=== PATIENT | female | born 1995 | race African-American/Black ===

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

== ENCOUNTER 2017-08-01 19:38 | Emergency (ER) | payer SELFPAY ==
[2017-08-01 19:51] LABS: URINE HCG POC HCG POSITIVE (Negative)
[2017-08-01 20:19] LABS: BILIRUBIN,URINE NEGATIVE (NEG); CLARITY,URINE CLEAR; GLUCOSE,URINE NEGATIVE (NEG); NITRITE,URINE NEGATIVE (NEG); PH,URINE 5.5; PROTEIN,URINE 30 mg/dL (NEG-TRACE); UROBILINOGEN,URINE 0.2 mg/dL (0.2 mg/dL)
[2017-08-01 20:31] LABS: COLOR,URINE DK YELLOW
[2017-08-01 20:33] LABS: BACTERIA,URINE MANY /HPF (0-FEW); SQUAMOUS EPITHELIAL CELL,UR MANY /LPF; WBC,URINE OCC /HPF (0-4)
[2017-08-01 21:16] LABS: ADD MAN DIFF? NO
[2017-08-01 21:18] LABS: BASO # 0.1 x10^3/uL (0.0-0.2); BASO % 1 % (0-3); EOS % 0 % (0-3); LYMPH # 2.9 x10^3/uL (1.0-4.8); LYMPH % 26 % (24-48); MEAN CORPUSCULAR HEMOGLOBIN 32 pg (25-35); MEAN CORPUSCULAR HGB CONC 34 g/dL (31-37); MEAN CORPUSCULAR VOLUME 93 fL (79-100); MONO # 0.9 x10^3/uL (0.0-1.1); MONO % 8 % (0-9); NEUT # 7.4 x10^3uL (1.8-7.7); NEUT % 65 % (31-73); PLATELET COUNT 224 x10^3/uL (140-400); RED CELL DISTRIBUTION WIDTH 13.3 % (11.5-14.5); WHITE BLOOD COUNT 11.3 x10^3/uL (4.0-11.0)
[2017-08-03 14:17] LABS: CHLAMYDIA PROBE Negative (Negative); GC PROBE Negative (Negative)
== END 2017-08-01 22:26 | disposition home or self-care (01) ==
LOC: ER 19:38
DX: Z33.1 Pregnant state, incidental (principal)
CPT/HCPCS: 36415; 76801; 76817; 81001; 81025; 84702; 85025; 86901; 87086; 87491; 87591; 99285-25; Q0111

== ENCOUNTER 2018-01-15 18:27 | Emergency (ER) | payer OTHER ==
[~2018-01-15] VITALS: Ht 152.4 cm; Wt 81.6 kg
[~2018-01-15 18:27] MED LIST changes: +METR500T PO
[2018-01-15 19:16] VITALS: BP 134/61
[2018-01-15 19:37] LABS: BILIRUBIN,URINE NEGATIVE (NEG); CLARITY,URINE CLEAR; COLOR,URINE YELLOW; NITRITE,URINE NEGATIVE (NEG); PH,URINE 5.5; PROTEIN,URINE NEGATIVE (NEG-TRACE); UROBILINOGEN,URINE 0.2 mg/dL (0.2 mg/dL)
--- NOTE | 2018-01-15 19:50 | PHYS DOC ---
Past Medical History Past Medical History: No Pertinent History Past Surgical History: No Surgical History Alcohol Use: None Drug Use: None Adult General Chief Complaint Chief Complaint: VAGINAL PROBLEM HPI HPI Patient is a 22 year old female with no significant medical history who presents today complaining of vaginal discharge for 3 days. Patient believes she has bacterial vaginosis. Denies any concerns for STDs. Denies any chance she is . Denies any abdominal pain. Denies any nausea vomiting. Review of Systems Review of Systems Constitutional: Denies fever or chills [] Eyes: Denies change in visual acuity, redness, or eye pain [] HENT: Denies nasal congestion or sore throat [] Respiratory: Denies cough or shortness of breath [] Cardiovascular: No additional information not addressed in HPI [] GI: Denies abdominal pain, nausea, vomiting, bloody stools or diarrhea [] : Reports vaginal discharge. Denies dysuria or hematuria [] Musculoskeletal: Denies back pain or joint pain [] Integument: Denies rash or skin lesions [] Neurologic: Denies headache, focal weakness or sensory changes [] All other systems were reviewed and found to be within normal limits, except as documented in this note. Allergies Allergies Allergies Coded Allergies Type Severity Reaction Last Updated Verified No Known Drug Allergies 04/13/16 No Physical Exam Physical Exam Constitutional: Well developed, well nourished, no acute distress, non-toxic appearance. [] HENT: Normocephalic, atraumatic, bilateral external ears normal, oropharynx moist, no oral exudates, nose normal. [] Eyes: PERRLA, EOMI, conjunctiva normal, no discharge. [] Neck: Normal range of motion, no tenderness, supple, no stridor. [] Cardiovascular:Heart rate regular rhythm, no murmur [] Lungs & Thorax: Bilateral breath sounds clear to auscultation [] Abdomen: Bowel sounds normal, soft, no tenderness, no masses, no pulsatile masses. [] Pelvic exam External pelvic appears normal, cervix is closed, no CMT, no adnexal tenderness , small amount of white discharge in the vaginal vault. Skin: Warm, dry, no erythema, no rash. [] Back: No tenderness, no CVA tenderness. [] Extremities: No tenderness, no cyanosis, no clubbing, ROM intact, no edema. [] Neurologic: Alert and oriented X 3, normal motor function, normal sensory function, no focal deficits noted. [] Psychologic: Affect normal, judgement normal, mood normal. [] Current Patient Data Vital Signs Vital Signs Date Time Temp Pulse Resp B/P (MAP) Pulse Ox O2 Delivery O2 Flow Rate FiO2 01/15/18 19:16 98.8 98 18 134/61 (85) 99 Room Air 98.8 Lab Values Laboratory Tests Test 01/15/18 19:22 01/15/18 19:28 Urine Collection Type Unknown Urine Color Yellow Urine Clarity Clear Urine pH 5.5 Urine Specific [place] >=1.030 Urine Protein Negative mg/dL (NEG-TRACE) Urine Glucose (UA) Negative mg/dL (NEG) Urine Ketones (Stick) Negative mg/dL (NEG) Urine Blood Negative (NEG) Urine Nitrite Negative (NEG) Urine Bilirubin Negative (NEG) Urine Urobilinogen Dipstick 0.2 mg/dL (0.2 mg/dL) Urine Leukocyte Esterase Negative (NEG) Urine RBC 0 /HPF (0-2) Urine WBC Occ /HPF (0-4) Urine Squamous Epithelial Cells Mod /LPF Urine Bacteria Few /HPF (0-FEW) Urine Mucus Mod /LPF POC Urine HCG, Qualitative Hcg negative (Negative) Microbiology 01/15/18 Wet Prep - Final, Complete EKG EKG [] Radiology/Procedures Radiology/Procedures [] Course & Med Decision Making Course & Med Decision Making Pertinent Labs and Imaging studies reviewed. (See chart for details) This is a 22-year-old female patient presented to the ED today with vaginal discharge for 3 days. Negative urine hCG, wet prep noted for BV. Patient will be discharged and Flagyl. Follow-up with PCP as needed. UA is negative for infection. Dragon Disclaimer Dragon Disclaimer This electronic medical record was generated, in whole or in part, using a voice recognition dictation system. Departure Departure Impression: Primary Impression: BV (bacterial vaginosis) Disposition: 01 HOME, SELF-CARE Condition: STABLE Referrals: NO PCP (PCP) KARIS SNOW MD Follow-up in 1-2 weeks as needed Patient Instructions: Bacterial Vaginosis, [id number] Additional Instructions: You have bacterial vaginosis, ensure you complete your antibiotics. Follow-up with your own SLABBER or primary care doctor in 1-2 weeks as needed. Come back to the emergency room at any point symptoms worsen. Scripts Metronidazole (FLAGYL) 500 Mg Tablet 1 TAB PO BID, #14 TAB Prov: MACHO PEREYRA APRN 01/15/18 MACHO PEREYRA APRN Jan 15, 2018 19:50
[2018-01-15 20:00] LABS: BACTERIA,URINE FEW /HPF (0-FEW); RBC,URINE 0 /HPF (0-2); SQUAMOUS EPITHELIAL CELL,UR MOD /LPF; WBC,URINE OCC /HPF (0-4)
[2018-01-15] MEDS ORDERED: METR500T PO (20:16)
[2018-01-18 15:26] LABS: GC PROBE Negative (Negative)
== END 2018-01-15 20:20 | disposition home or self-care (01) ==
LOC: ER 18:27
DX: N76.0 Acute vaginitis (principal); B96.89 Other specified bacterial agents as the cause of diseases classified elsewhere
CPT/HCPCS: 81001; 81025; 87491; 87591; 99284; Q0111

== ENCOUNTER 2018-02-16 15:24 | Emergency (ER) | payer SELFPAY ==
[~2018-02-16] VITALS: Ht 154.9 cm; Wt 83.3 kg
--- NOTE | 2018-02-16 15:53 | PHYS DOC ---
Past Medical History Past Medical History: No Pertinent History Past Surgical History: No Surgical History Alcohol Use: None Drug Use: None Adult General Chief Complaint Chief Complaint: FINGER INJURY HPI HPI 22-year-old female presents to ER for complaints of left middle finger pain and swelling at the side and base of her nail bed. Patient reports she was seen by her doctor yesterday and was instructed to soak finger in peroxide multiple times daily. Patient reports pain and pressure in the end of her left middle finger has increased denying any fever/chills or red streaking on finger. She denies injury to lt middle finger- reporting she picks her nails/skin surrounding nailbed and has had similar episodes. Pt was started on Keflex yesterday for sore throat. Review of Systems Review of Systems Constitutional: Denies fever or chills [] Eyes: Denies change in visual acuity, redness, or eye pain [] HENT: Denies nasal congestion or sore throat [] Respiratory: Denies cough or shortness of breath [] Cardiovascular: No additional information not addressed in HPI [] GI: Denies abdominal pain, nausea, vomiting, bloody stools or diarrhea [] : Denies dysuria or hematuria [] Musculoskeletal: Denies back pain or joint pain [] Integument: Denies rash or skin lesions [] Neurologic: Denies headache, focal weakness or sensory changes [] Endocrine: Denies polyuria or polydipsia [] All other systems were reviewed and found to be within normal limits, except as documented in this note. Allergies Allergies Allergies Coded Allergies Type Severity Reaction Last Updated Verified No Known Drug Allergies 04/13/16 No Physical Exam Physical Exam Constitutional: Well developed, well nourished, no acute distress, non-toxic appearance. [] Neck: Normal range of motion, no tenderness, supple Cardiovascular:Heart rate regular Lungs & Thorax: Resp. equal/nonlabored Abdomen: Bowel sounds normal, soft, no tenderness Skin: Warm, dry, no rash. [] Extremities: no cyanosis, no clubbing, ROM intact- tender to palp. dorsal surface of lt middle finger/surrounding nailbed and at base of nailbed. Lt middle finger brisk cap refill. Swelling/mild erythema at side of nailbed- no drainage/bleeding. No redness extending up finger. Neurologic: Alert and oriented X 3, normal motor function, normal sensory function, no focal deficits noted. [] Psychologic: Affect normal, judgement normal, mood normal. [] Current Patient Data Vital Signs Vital Signs Date Time Temp Pulse Resp B/P (MAP) Pulse Ox O2 Delivery O2 Flow Rate FiO2 02/16/18 15:32 99.0 72 14 127/65 (85) 98 Room Air 99.0 EKG EKG [] Radiology/Procedures Radiology/Procedures [] Course & Med Decision Making Course & Med Decision Making 18 g. needle was used and gently inserted along nailbed at swelling site with instant yellow/green drainage- no bleeding. Wound was cleanse and with gentle pressure had additional drainage with pt reporting pressure/pain in distal end of finger improved after this procedure. Pt remained neuro/vascular intact with brisk cap refill in all lt fingers. Home wound care discussed with education on epsom salt soaks and avoidance of picking at nails/skin surrounding nails. Pt was in no distress at time of discharge discussion. Education provided on s&s to return to ER for and instructions discussed. Pt was placed on Keflex yesterday for sore throat so she was advised to finish all medication for nail infection as well. Pt agreeable with discharge plan. [] Dragon Disclaimer Dragon Disclaimer This electronic medical record was generated, in whole or in part, using a voice recognition dictation system. Departure Departure Impression: Primary Impression: Paronychia Disposition: 01 HOME, SELF-CARE Condition: STABLE Referrals: NO PCP (PCP) Patient Instructions: Paronychia Additional Instructions: Finish your Keflex prescriptions as directed. Warm soaks as discussed. With any concerns follow-up with primary doctor for re-evaluation of wound. Avoid picking the skin around nail. Tylenol and/or ibuprofen as directed on container for pain as needed. CRISTOBAL CORREIA APRN Feb 16, 2018 15:53
== END 2018-02-16 15:53 | disposition home or self-care (01) ==
LOC: ER 15:24
DX: L03.012 Cellulitis of left finger (principal)
CPT/HCPCS: 99283

== ENCOUNTER 2018-08-14 18:46 | Emergency (ER) | payer OTHER ==
[~2018-08-14] VITALS: Ht 152.4 cm; Wt 83.9 kg
[2018-08-14 19:00] VITALS: BP 142/75
[2018-08-14] MEDS ORDERED: IBUPROFEN 400 MG TABLET. PO ONE (20:00)
[2018-08-14] MEDS ORDERED: ACETAMINOPHEN 500 MG TABLET PO ONE (20:00)
[2018-08-14 20:14] LABS: BILIRUBIN,URINE NEGATIVE (NEG); CLARITY,URINE CLEAR; COLOR,URINE YELLOW; NITRITE,URINE NEGATIVE (NEG); PH,URINE 5.5; PROTEIN,URINE NEGATIVE (NEG-TRACE); UROBILINOGEN,URINE 0.2 mg/dL (0.2 mg/dL)
[2018-08-14 20:20] LABS: SQUAMOUS EPITHELIAL CELL,UR MOD /LPF
[2018-08-14 20:21] LABS: BACTERIA,URINE MANY /HPF (0-FEW); RBC,URINE 0 /HPF (0-2)
[2018-08-14 20:35] LABS: INFLUENZA A PATIENT POSITIVE (NEGATIVE); INFLUENZA B PATIENT NEGATIVE (NEGATIVE)
--- NOTE | 2018-08-14 20:57 | RAD ---
PORTABLE CHEST 1V History: FEVER Comparison: None. Findings: Single view of the chest is submitted. There is no infiltrate, pleural fluid, pneumothorax. Heart size is within normal limits. Impression: 1. There is no infiltrate. Electronically signed by: Dano Rojas MD (08/14/2018 8:54 PM) [facility]
[2018-08-14] MEDS ORDERED: OSEL75CA PO (21:18)
--- NOTE | 2018-08-14 22:31 | PHYS DOC ---
Past Medical History Past Medical History: No Pertinent History Past Surgical History: Other Additional Past Surgical Histo: WISDOM TEETH Alcohol Use: None Drug Use: None Adult General Chief Complaint Chief Complaint: FLU SYMPTOM HPI HPI Patient is a 22 year old ]F COUGH BODY ACHES FEVER SORE THROAT RUNNY NOSE X THREE DAYS NAUSEA Current Medications Current Medications Current Medications Medications (Trade) Dose Ordered Sig/Janine Start Time Stop Time Status Last Admin Dose Admin Acetaminophen (Tylenol) 1,000 mg 1X ONCE 08/14/18 20:00 08/14/18 20:01 DC 08/14/18 20:03 1,000 MG Ibuprofen (Motrin) 400 mg 1X ONCE 08/14/18 20:00 08/14/18 20:01 DC 08/14/18 20:00 400 MG Allergies Allergies Allergies Coded Allergies Type Severity Reaction Last Updated Verified No Known Drug Allergies 04/13/16 No Physical Exam Physical Exam Constitutional: Well developed, well nourished,MILD distress, non-toxic appearance. [] HENT: Normocephalic, atraumatic, bilateral external ears normal, oropharynx moist, no oral exudates, nose normal. [] Eyes: PERRLA, EOMI, conjunctiva normal, no discharge. [] Neck: Normal range of motion, no tenderness, supple, no stridor. [] Cardiovascular:Heart rate regular rhythm, no murmur [] Lungs & Thorax: Bilateral breath sounds clear to auscultation [] Abdomen: Bowel sounds normal, soft, no tenderness, no masses, no pulsatile masses. [] Skin: Warm, dry, no erythema, no rash. [] Back: No tenderness, no CVA tenderness. [] Extremities: No tenderness, no cyanosis, no clubbing, ROM intact, no edema. [] Neurologic: Alert and oriented X 3, normal motor function, normal sensory function, no focal deficits noted. [] Psychologic: Affect normal, judgement normal, mood normal. [] Current Patient Data Vital Signs Vital Signs Date Time Temp Pulse Resp B/P (MAP) Pulse Ox O2 Delivery O2 Flow Rate FiO2 08/14/18 19:00 103.0 112 18 142/75 (97) 96 Room Air 103.0 Lab Values Laboratory Tests Test 08/14/18 19:52 08/14/18 19:54 08/14/18 20:00 Influenza Type A Antigen Positive (NEGATIVE) Influenza Type B Antigen Negative (NEGATIVE) Urine Collection Type Unknown Urine Color Yellow Urine Clarity Clear Urine pH 5.5 Urine Specific [place] 1.015 Urine Protein Negative mg/dL (NEG-TRACE) Urine Glucose (UA) Negative mg/dL (NEG) Urine Ketones (Stick) >=80 mg/dL (NEG) Urine Blood Negative (NEG) Urine Nitrite Negative (NEG) Urine Bilirubin Negative (NEG) Urine Urobilinogen Dipstick 0.2 mg/dL (0.2 mg/dL) Urine Leukocyte Esterase Negative (NEG) Urine RBC 0 /HPF (0-2) Urine WBC 5-10 /HPF (0-4) Urine Squamous Epithelial Cells Mod /LPF Urine Bacteria Many /HPF (0-FEW) Urine Mucus Mod /LPF POC Urine HCG, Qualitative Hcg negative (Negative) EKG EKG [] Radiology/Procedures Radiology/Procedures [] Course & Med Decision Making Course & Med Decision Making Pertinent Labs and Imaging studies reviewed. (See chart for details) []FLU POS TAMIFLU WSELL APPEARING CXR NEG Dragon Disclaimer Dragon Disclaimer This electronic medical record was generated, in whole or in part, using a voice recognition dictation system. Departure Departure Impression: Primary Impression: Influenza Disposition: 01 HOME, SELF-CARE Condition: STABLE Patient Instructions: Influenza, Adult Scripts Oseltamivir Phosphate (TAMIFLU) 75 Mg Capsule 1 CAP PO BID, #10 CAP Prov: DAPHNE SAMANIEGO MD 08/14/18 DAPHNE SAMANIEGO MD Aug 14, 2018 22:31
== END 2018-08-14 21:32 | disposition home or self-care (01) ==
LOC: ER 18:46
DX: J10.1 Influenza due to other identified influenza virus with other respiratory manifestations (principal)
CPT/HCPCS: 71045; 81001; 81025; 87070; 87086; 87804; 87880; 99284

== ENCOUNTER 2018-08-18 12:07 | Emergency (ER) | payer OTHER ==
[~2018-08-18] VITALS: Ht 152.4 cm; Wt 83.9 kg
[~2018-08-18 12:07] MED LIST changes: +OSEL75CA PO
[2018-08-18 12:15] VITALS: BP 138/66
[2018-08-18] MEDS ORDERED: IPRATRPIUM/ALBUTEROL 0.5/2.5MG 3 ML NEBU. NEB ONE (13:30)
[2018-08-18] MEDS ORDERED: ONDANSETRON ODT 4 MG TAB.RAPDIS. PO ONE (13:30)
--- NOTE | 2018-08-18 14:18 | PHYS DOC ---
Past Medical History Past Medical History: No Pertinent History Past Surgical History: Other Additional Past Surgical Histo: WISDOM TEETH Alcohol Use: None Drug Use: None Adult General Chief Complaint Chief Complaint: NAUSEA/VOMITING/DIARRHA HPI HPI 22 y/o female returns to ER as she was seen on Thursday and dx'd with the flu. She reports her sxs continue and she has also started having vomiting episodes and sm. amt of diarrhea. She reports she started Tamiflu on Thursday. She reports she continues to feel fatigued with body aches, cough, and chills. She states she thought her sxs would be gone by now. She reports she feels feverish - triage temp. 98.8. She denies CP, SOA, abd pain, or urinary sxs. LMP was at end of Jun. She is not a smoker. She reports she did take mucinex and nyquil yest. denies meds today. Review of Systems Review of Systems Constitutional: Reports feeling feverish with gen. fatigue Eyes: Denies change in visual acuity, redness, or eye pain [] HENT: Reports sinus congestion and mild sore throat. Denies difficulty swallowing Respiratory: Denies shortness of breath. Reports nonprod. cough Cardiovascular: Denies CP/tightness GI: Denies abdominal pain, bloody stools. Reports intermittent N/V and sm. amt of diarrhea : Denies dysuria or hematuria [] Musculoskeletal: Denies back/neck pain or joint pain [] Integument: Denies rash or skin lesions [] Neurologic: Denies headache, focal weakness or sensory changes [] All other systems were reviewed and found to be within normal limits, except as documented in this note. Current Medications Current Medications Current Medications Medications (Trade) Dose Ordered Sig/Janine Start Time Stop Time Status Last Admin Dose Admin Albuterol/ Ipratropium (Duoneb) 3 ml 1X ONCE 08/18/18 13:30 08/18/18 13:31 DC 08/18/18 13:58 3 ML Ondansetron HCl (Zofran Odt) 4 mg 1X ONCE 08/18/18 13:30 08/18/18 13:31 DC 08/18/18 13:26 4 MG Allergies Allergies Allergies Coded Allergies Type Severity Reaction Last Updated Verified No Known Drug Allergies 04/13/16 No Physical Exam Physical Exam Constitutional: Well developed, well nourished, no acute distress, non-toxic appearance. [] HENT: Normocephalic, atraumatic, bilateral ears normal, mucous membranes pink/ moist- mild pharyngeal redness without swelling to bilat. tonsils, no oral exudates, nose normal. [] Eyes: Pupils equal, conjunctiva normal, no discharge. [] Neck: Normal range of motion, no tenderness- no nuchal rigidity, supple, no stridor/gross adenopathy Cardiovascular: Heart rate regular rhythm, no murmur [] Lungs & Thorax: Bilateral breath sounds clear to auscultation in upper lobes- decreased air movement throughout all lung justice w/less air movement in bases. Pt speaking in full sentences. Resp. equal/nonlabored Abdomen: Bowel sounds normal, soft- no distention, no tenderness Skin: Warm, dry, no erythema, no rash. [] Back: No tenderness, no CVA tenderness. [] Extremities: ROM intact, no edema. [] Neurologic: Alert and oriented X 3, normal motor function, normal sensory function, no focal deficits noted. [] Psychologic: Affect normal, judgement normal, mood normal. [] Current Patient Data Vital Signs Vital Signs Date Time Temp Pulse Resp B/P (MAP) Pulse Ox O2 Delivery O2 Flow Rate FiO2 08/18/18 13:58 Room Air 08/18/18 12:15 98.8 76 16 138/66 (90) 98 98.8 EKG EKG [] Radiology/Procedures Radiology/Procedures [] Course & Med Decision Making Course & Med Decision Making 1410: Pt was evaluated in the ER for ongoing flulike illness. She was in the ER on Thursday and diagnosed with the flu and started on Tamiflu. Patient states her symptoms have been ongoing and she has had some nausea and vomiting since starting on Tamiflu. At this time following DuoNeb treatment and dose of Zofran ODT she reports she is feeling much better. Patient has increased air movement throughout all lung justice following DuoNeb. She has had no vomiting episodes while in the. She is in no distress at this time. Discussed with GI sxs starting she could stop the Tamiflu as she has only 2 doses left. Discussed OTC meds for tx. She reports she has a nebulizer machine at home but wasn't sure if she use for her coughing episodes- advised on use as Rx'd. Education provided on s&s to return to ER for and d/c instructions were discussed. Pt to f/u with PCP as needed- will provide community resource info on clinics/physicians. Tonio Disclaimer Tonio Disclaimer This electronic medical record was generated, in whole or in part, using a voice recognition dictation system. Departure Departure Impression: Primary Impression: Influenza Additional Impressions: Cough Nausea & vomiting Disposition: HOME, SELF-CARE Condition: STABLE Referrals: NO PCP (PCP) Patient Instructions: Cough, Adult, Influenza Facts, Nausea and Vomiting Additional Instructions: Stop taking the Tamiflu as you are experiencing nausea and vomiting. Drink plenty of fluids. Follow-up with your primary care physician for reevaluation and with any concerns. Use your nebulizer machine at home as directed. You can try [id number] cough suppressants, lozenges, and warm fluids for cough and sore throat. Problem Qualifiers CRISTOBAL CORREIA APRN Aug 18, 2018 14:18
== END 2018-08-18 14:25 | disposition home or self-care (01) ==
LOC: ER 12:07
DX: J11.1 Influenza due to unidentified influenza virus with other respiratory manifestations (principal); R11.2 Nausea with vomiting, unspecified; R19.7 Diarrhea, unspecified
CPT/HCPCS: 94640; 99283; J7620; Q0162

== ENCOUNTER 2019-06-27 18:37 | Emergency (ER) | payer SELFPAY ==
[~2019-06-27] VITALS: Ht 152.4 cm; Wt 93.1 kg
[2019-06-27 19:49] VITALS: BP 131/63
--- NOTE | 2019-06-27 20:29 | PHYS DOC ---
Past Medical History Past Medical History: No Pertinent History Past Surgical History: Other Additional Past Surgical Histo: WISDOM TEETH Alcohol Use: None Drug Use: None Adult General Chief Complaint Chief Complaint: RECTAL BLEED HPI HPI Patient is a 23 year old [place] female presents with painless bright red rectal bleeding earlier this evening after bowel movement. Patient reports bright red blood on wiping and on top a stool. Denies pain with bowel movement or rectal pain. No abdominal pain. Denies constipation. No other acute symptoms or complaints.[] Review of Systems Review of Systems ROS as per HPI All other systems were reviewed and found to be within normal limits, except as documented in this note. Allergies Allergies Allergies Coded Allergies Type Severity Reaction Last Updated Verified No Known Drug Allergies 04/13/16 No Physical Exam Physical Exam Constitutional: Well developed, well nourished, no acute distress, non-toxic appearance. [] HENT: Normocephalic, atraumatic, bilateral external ears normal, oropharynx moist, no oral exudates, nose normal. [] Eyes: PERRLA, EOMI, conjunctiva normal, no discharge. [] Rectal: No gross blood, small superficial rectal teat at 6 o'clock position. [] Back: No tenderness,. [] Extremities: No tenderness, no edema. [] Neurologic: Alert and oriented X 3, normal motor function, normal sensory function, no focal deficits noted. [] Psychologic: Affect normal, judgement normal, mood normal. [] Current Patient Data Vital Signs Vital Signs Date Time Temp Pulse Resp B/P (MAP) Pulse Ox O2 Delivery O2 Flow Rate FiO2 06/27/19 19:49 98.6 68 16 131/63 (85) 99 Room Air 98.6 EKG EKG [] Radiology/Procedures Radiology/Procedures [] Course & Med Decision Making Course & Med Decision Making Pertinent Labs and Imaging studies reviewed. (See chart for details) [No active bleeding on exam. Recommend supportive care with PCP follow-up as needed. Return precautions reviewed.] Dragon Disclaimer Dragon Disclaimer This electronic medical record was generated, in whole or in part, using a voice recognition dictation system. Departure Departure Impression: Primary Impression: Rectal bleeding Disposition: HOME, SELF-CARE Condition: GOOD Patient Instructions: Rectal Bleeding Additional Instructions: You were evaluated in the ED for rectal bleeding. On exam, you have an anal muco frandy tear, which is the likely cause of your bleeding. Please take stool softener and use sitz bath and follow-up with PCP for reevaluation. WILL DIAZ DO Jun 27, 2019 20:29
== END 2019-06-27 20:41 | disposition home or self-care (01) ==
LOC: ER 18:37
DX: K62.5 Hemorrhage of anus and rectum (principal); Z98.890 Other specified postprocedural states
CPT/HCPCS: 99281